=== PATIENT | female | born 1950 | race Caucasian/White ===

== ENCOUNTER 2024-10-27 15:04 | Observation (INO) | payer MEDICARE, OTHER ==
[~2024-10-27] VITALS: Ht 165.1 cm; Wt 75.0 kg
[2024-10-27] VITALS (15 sets, daily range): BP systolic 123–170; BP diastolic 43–85; PULSE 54–78; RESP 13–16; TEMP 97.5–98.1; O2SAT 89–99
[2024-10-27] MEDS: famotidine 20mg tablet PO ONE (15:30)
[2024-10-27] MEDS: ringers solution, lacted 1,000 ML IV SCH ×2 (15:34→18:15)
[2024-10-27] MEDS: vancomycin/NS 1 GM ADD-VANTAGE 250 ML X 1 DOSE IV ONE (16:08)
[2024-10-27 16:12] LABS: BASOPHILS % (AUTO) 0.8 % (0-1); EOSINOPHILS % (AUTO) 0.8 % (0-6); LYMPHOCYTES # (AUTO) 1.3 X10'3 (1.1-4.8); LYMPHOCYTES % (AUTO) 22.3 % (21-51); MEAN CORPUSCULAR HEMOGLOBIN 34.1 PG (27.0-31.0); MEAN CORPUSCULAR HGB CONC 34.6 g/dL (33.0-36.5); MEAN CORPUSCULAR VOLUME 98.5 FL (78-98); MEAN PLATELET VOLUME 7.8 FL (7.4-10.4); MONOCYTES # (AUTO) 0.5 X10'3 (0-0.9); MONOCYTES % (AUTO) 9.2 % (2-12); NEUTROPHILS # (AUTO) 3.9 X10'3 (1.8-7.7); NEUTROPHILS % (AUTO) 66.9 % (42-75); PRE OP HEMATOCRIT 36.8 % (35.0-45.0); PRE OP HEMOGLOBIN 12.7 g/dL (12.0-16.0); PRE OP PLATELET COUNT 280 X10'3 (140-440); PRE OP WHITE BLOOD COUNT 5.8 10'3 (4.8-10.8); RED BLOOD COUNT 3.73 X10'6 (4.20-5.60)
[2024-10-27 16:19] LABS: BILIRUBIN,URINE NEGATIVE (Neg); CLARITY,URINE CLEAR (Clear); COLOR,URINE YELLOW (Yellow); GLUCOSE, URINE NEGATIVE (Neg); KETONES,URINE 15 mg/dl (Neg); LEUKOCYTE ESTERASE ,URINE NEGATIVE (Neg); NITRITES, URINE NEGATIVE (Neg); OCCULT BLOOD,URINE NEGATIVE (Neg); PROTEIN,URINE NEGATIVE (Neg); UROBILINOGEN,URINE 0.2 E.U/dL (0.2-1.0)
[2024-10-27 16:22] LABS: UA COLLECTION TYPE CLN CATCH MIDSTREAM
[2024-10-27 16:32] LABS: ALBUMIN 3.5 G/DL (3.4-5.0); ALBUMIN/GLOBULIN RATIO 1.1 (1.1-1.5); ALKALINE PHOSPHATASE 70 IU/L (46-116); BLOOD UREA NITROGEN 21 MG/DL (7-18); BUN/CREATININE RATIO 24.1 (10.0-20.0); CALCIUM 9.3 MG/DL (8.5-10.1); CHLORIDE 108 MMOL/L (99-107); CREATININE 0.87 MG/DL (0.40-0.90); PRE OP ALT 25 U/L (30-65); PRE OP ANION GAP 8 (8-16); PRE OP AST 20 U/L (10-37); PRE OP BILIRUB, TOTAL 0.6 MG/DL (0.0-1.0); PRE OP GLUCOSE 94 MG/DL (70-104); PRE OP POTASSIUM 4.1 MMOL/L (3.4-5.1); PRE OP SODIUM 143 MMOL/L (135-145); TOTAL CARBON DIOXIDE 26.9 MMOL/L (24-32); TOTAL PROTEIN 6.8 G/DL (6.4-8.2); eCRCL 50 ML/MIN; eGFR 63 ML/MIN
--- NOTE | 2024-10-27 16:59 | ELECTROCARDIOGRAPH REPORT ---
[facility] Test Date: 2024-10-27 Test Time: 16:56:48 Pat Name: CEE PAYNE Department: [facility]-OR Patient ID: [facility]-[id number] Room: Gender: F [employer]: NIRAJ : [id number] Requested By: JOSE MARTIN Order Number: [id number] Reading MD: Dr. ADÁN Russell Measurements Intervals [place] Rate: 76 P: 2 [place]: 140 QRS: 43 QRSD: 90 T: 43 QT: 381 QTc: 429 Interpretive Statements Sinus rhythm Atrial premature complex Electronically Signed On 10-27-2024 17:52:[address] ADÁN Russell Please click the below link to view image of tracing.
[2024-10-27] MEDS: morphine 4 MG/ML inj SYRINge ONE ×2 (17:03→17:23)
[2024-10-27] MEDS: acetaminophen 1,000mg/100ml IV 100 ML IV ONE (17:22)
--- NOTE | 2024-10-27 17:49 | RADIOLOGY REPORT ---
CHEST RADIOGRAPH Indication: PREOP Technique: Single frontal view of the chest was obtained Comparison: None FINDINGS: Lines and Tubes: Scarring or linear atelectasis left base Lungs: No focal consolidation. Pleura: No effusion. No pneumothorax. Cardiomediastinal contours: Unremarkable Bones: No acute osseous abnormality. IMPRESSION: 1. Scarring or linear atelectasis left base.
[2024-10-27] MEDS ORDERED: cloNIDine hcl/PF 100mcg/ml inj ONE (18:02)
[2024-10-27] MEDS ORDERED: fentaNYL/PF 50MCG/1 ML 2ML syringe ONE (18:04)
[2024-10-27] MEDS ORDERED: BUPIVAcaine 2.5mg/ml inj 50ml vial (contains preservative) ONE (18:09)
[2024-10-27] MEDS ORDERED: bacitracin 15gm ointment TP ONE (18:09)
[2024-10-27] MEDS ORDERED: sevoflurane 250ml liquid IH ONE (18:11)
[2024-10-27] MEDS ORDERED: ondansetron/PF 4mg/2ml inj IV PRN ×2 (18:15→20:40)
[2024-10-27] MEDS ORDERED: morphine 4 MG/ML inj SYRINge IV PRN (18:15)
[2024-10-27] MEDS ORDERED: HYDROmorphone/PF 0.2 MG/ML SYRINGE IV PRN ×2 (18:15)
[2024-10-27] MEDS ORDERED: proCHLORperazine 10 MG/2 ml inj IV PRN (18:15)
[2024-10-27] MEDS ORDERED: meperidine/PF 25mg/ml syringe IV PRN (18:15)
[2024-10-27] MEDS ORDERED: hydrALAZINE 20mg/ml inj. IV PRN (18:15)
[2024-10-27] MEDS ORDERED: labetalol 20mg/4ml (5mg/ml) syringe IV PRN (18:15)
[2024-10-27] MEDS ORDERED: acetaminophen 1,000mg/100ml IV 100 ML IV PRN (18:15)
[2024-10-27] MEDS ORDERED: morphine 2 MG/ML inj. syringe IV PRN (18:15)
[2024-10-27] MEDS ORDERED: midazolam 1 mg/ML 2ml injection ONE (18:20)
[2024-10-27] MEDS ORDERED: ROPIVAcaine 0.5% (5mg/ml) 30ml vial ONE (18:53)
[2024-10-27] MEDS ORDERED: propofol inj 20 ML IV ONE (18:53)
[2024-10-27] MEDS ORDERED: LIDOcaine 2% (20mg/ml) 5ml vial ONE (18:53)
[2024-10-27] MEDS ORDERED: 0.9 % SODIUM CHLORIDE 10 ML VIAL ONE (18:53)
[2024-10-27] MEDS ORDERED: dexamethasone sod phosphate 4mg/ml inj. ONE (18:54)
[2024-10-27] MEDS ORDERED: ondansetron/PF 4mg/2ml inj ONE (18:55)
[2024-10-27] MEDS ORDERED: acetaminophen 325mg tablet PO PRN (20:40)
[2024-10-27] MEDS ORDERED: magnesium hydroxide 30ml (MOM) UD suspension PO PRN (20:40)
[2024-10-27] MEDS ORDERED: naloxone 0.4 mg/ml inj IV PRN (20:40)
[2024-10-27] MEDS ORDERED: bisacodyl 10mg suppository rectal RC PRN (20:40)
[2024-10-27] MEDS ORDERED: CEPH500C2 PO (21:44)
[2024-10-27] MEDS ORDERED: HYDR-3686 PO (21:44)
[2024-10-28 00:26] VITALS: BP 124/53; PULSE 61; RESP 16; O2SAT 94
[2024-10-28 01:25] VITALS: BP 114/46; PULSE 67; RESP 16; O2SAT 92
[2024-10-28 02:50] VITALS: BP 119/48; PULSE 55; RESP 13; TEMP 98.1; O2SAT 94
[2024-10-28 05:21] LABS: ANION GAP 5 (8-16); CHLORIDE 109 MMOL/L (99-107); POTASSIUM 4.4 MMOL/L (3.5-5.1); SODIUM 140 MMOL/L (135-145); TOTAL CARBON DIOXIDE 26.4 MMOL/L (24-32)
[2024-10-28 06:00] VITALS: BP 114/79; PULSE 82; RESP 15; TEMP 97.8; O2SAT 98
[2024-10-28] MEDS: aspirin 81mg tab.chew PO SCH (07:20)
[2024-10-28] MEDS: HYDROcodone/acetaminophen 10/325mg tab PO PRN (07:21)
[2024-10-28 08:08] VITALS: RESP 18
[2024-10-28 11:42] VITALS: RESP 16
== END 2024-10-28 11:50 | disposition home or self-care (01) ==
LOC: OR 15:04 → ORTHO 4S 20:06 → OR 20:06 → ORTHO 4S 20:06 → OR 10-28 04:49 → UNDOADMOB 10-28 04:51 → INTOOBSV 10-28 04:51 → ORTHO 4S 10-28 04:51
PROVIDERS: ADMIT Podiatrist Foot & Ankle Surgery; ATTEND Podiatrist Foot & Ankle Surgery
DX: S82.891E Other fracture of right lower leg, subsequent encounter for open fracture type I or II with routine healing (principal); G89.18 Other acute postprocedural pain; M25.471 Effusion, right ankle; I10 Essential (primary) hypertension; X58.XXXD Exposure to other specified factors, subsequent encounter; Z79.899 Other long term (current) drug therapy; Z98.890 Other specified postprocedural states
CPT/HCPCS: 27814; 64445; 64447; 73600; 76000; 80051; 80053; 81003; 93005; 97161; A4618; A7000; C1713; G0378; J7120; 36415; 71045; 85025; 87081; 97530; A6223; A6253; A6449; J0131; J0735; J1100; J2003; J2250; J2270; J2405; J2704; J2795; J3010; J3370; J3490